=== PATIENT | female | born 1955 | race Caucasian/White ===

== ENCOUNTER → 2017-04-11 | Outpatient (CLI) | payer OTHER ==
[~2017-04-11] MED LIST: CHOL100014 PO; CHOL500050 PO; CIPR500T87 PO; CYCL-259 PO; HYDR-3138 PO; LANS30CA16 PO; LISI2.5T PO; METR500T PO; ONDA4TAB10 PO
== END | disposition home or self-care (01) ==
LOC: CFH 09:22
PROVIDERS: ATTEND Family Medicine
DX: Z12.31 Encounter for screening mammogram for malignant neoplasm of breast (principal)
CPT/HCPCS: G0202